=== PATIENT | male | born 1995 | race Caucasian/White ===

== ENCOUNTER 2024-06-22 14:49 | Emergency (ER) | payer SELFPAY ==
[2024-06-22 14:52] VITALS: BP 137/87
--- NOTE | 2024-06-22 15:20 | ED.GENMED ---
History of Present Illness
General
Chief Complaint: Skin Surface Trauma
Source: patient
Exam Limitations: none
Time Seen by Provider: 06/22/24 14:56
Nursing documentation reviewed up to this point in time: agreed with
History of Present Illness
History of Present Illness:
29-year-old male presenting to the emergency department today with concerns of a laceration to his left thumb that occurred from a razor blade while working just prior to arrival. Denies any numbness weakness or additional concerns but does have
significant bleeding. Unsure when his last tetanus shot was. Will be given an updated shot with the visit today.
Review of Systems
Review of Systems
Allergies reviewed?: Yes
All Other Systems: ROS reviewed and negative except as documented in HPI and ROS
Phy Exam
Physical Exam
Physical Exam:
GENERAL: Alert , in no apparent distress
EYE: pupils equal and reactive
NECK: Supple, no significant adenopathy.
ENT: o/p clr, mmm.
CARDIAC: Regular rate and rhythm .
LUNGS: Clear breath sounds bilaterally, no acute respiratory distress, no wheezes/rales/rhonchi
ABDOMEN: Soft, without focal tenderness, no r/g, no cvat
NEUROLOGICAL: Alert and oriented, no focal neuro deficits
SKIN: 2 cm laceration to the left thumb on the radial aspect distal to the IPJ subcutaneous in depth. Warm and dry, skin intact.
MUSCULOSKELETAL: No edema, well perfused.
PSYCH: Normal and appropriate interaction.
Course
Orders/Labs/Results
Orders:
Orders
06/22/24 15:03
Tetanus/Diphth/Acelpertussis [Adacel] 0.5 ml IM .ONCE ONE
Vital Signs
Initial and Last Documented VS:
Initial Vital Signs
Temp Pulse Resp BP Pulse Ox
98.1 F 79 18 137/87 96
06/22/24 14:52 06/22/24 14:52 06/22/24 14:52 06/22/24 14:52 06/22/24 14:52
Last Documented Vital Signs
Temp Pulse Resp BP Pulse Ox
98.1 F 79 18 137/87 96
06/22/24 14:52 06/22/24 14:52 06/22/24 14:52 06/22/24 14:52 06/22/24 14:52
Procedures
Laceration Closure
Left Distal Radial Thumb:
Status of Wound: clean
Size of Wound in cm: 2
Description of Wound Edges: sharp
Preparation: cleaned with saline
Anesthesia: 1% Lidocaine
Revision/Debridement: routine- no revision and irrigate-direct pressure
Wound exploration: explored to base- no FB and no tendon involvement
Type of Closure: single layer closure
Skin Closure Material: 4-0 chromic gut
Number of sutures: 3
MDM/Problems Addressed
MDM/Problems Addressed:
29-year-old male presenting to the emergency department today with concerns of left thumb laceration. This was cleaned thoroughly and closed with 3 stitches. Dissolvable stitches were used as he claims that he does not plan on following up. I
feel this is reasonable as the laceration is very small and superficial. Was given a splint otherwise advised to keep the area clean covered and return for any worsening, new or concerning symptoms. Also given updated tetanus shot.
*Critical Care Note
Total Time (30-74mins, 75-104mins- exclusive of procedures): Not Applicable
ED Attending Note
-
Portions of this chart may have been created with voice recognition software.� Occasional wrong word or��sound alike� substitutions may have occurred due to the inherent limitations of voice recognition software.
Discharge Plan
Departure
Patient Disposition: Home (Routine Discharge)
Date of Disposition: 06/22/24
Time of Disposition: 15:24
Patient with high blood pressure during this ER visit?: No
Condition: Good
Covid-19: Not Applicable
Discharge Problem:
Laceration of thumb
Instructions: Laceration Repair With Stitches (DC)
Stand Alone Forms: Return to Work
Activity Restrictions/Additional Instructions:
You came to the emergency department today with concerns of a laceration. This was closed with 3 dissolving stitches. Please keep the area clean covered and return for any worsening, new or concerning symptoms.
Interventions
Interventions:
*Risk Screen - Suicide Last Done: 06/22/24 14:52
*General Assessment Last Done: 06/22/24 14:52
*Neglect/Abuse Screening Last Done: 06/22/24 14:52
Discharge Date and Time
Print Language: GREENLANDIC
[2024-06-22] MEDS: ADACEL 0.5 ML IM (15:42)
== END 2024-06-22 16:07 | disposition home or self-care (01) ==
LOC: EMR 14:49
PROVIDERS: EMERGENCY PHYSICIAN Emergency Medicine
DX: S61.012A Laceration without foreign body of left thumb without damage to nail, initial encounter (principal); W45.8XXA Other foreign body or object entering through skin, initial encounter; Z23 Encounter for immunization
CPT/HCPCS: 99282; 90471; 12001; 90715